=== PATIENT | female | born 1985 | race Caucasian/White ===

== ENCOUNTER 2022-02-02 08:40 | Day surgery (SDC) | payer OTHER ==
[2022-02-01 08:57] VITALS: BMI 23.9
[2022-02-02] MEDS ORDERED: PROPOFOL 80 ML ONE (08:47)
[2022-02-02 11:14] VITALS: TEMP 98.2
[2022-02-02 11:37] VITALS: BP 101/62; PULSE 79; RESP 18
== END 2022-02-02 11:30 | disposition home or self-care (01) ==
LOC: FASU-ENDO 08:40
PROVIDERS: ATTEND Internal Medicine
PROC: 0DJD8ZZ Inspection of Lower Intestinal Tract, Via Natural or Artificial Opening Endoscopic (ICD-10-PCS; principal; 2022-02-02 10:27)
DX: K92.1 Melena (principal); K64.8 Other hemorrhoids
CPT/HCPCS: 84703